=== PATIENT | male | born 1990 | race African-American/Black ===

== ENCOUNTER 2021-07-27 21:42 | Emergency (ER) | payer MEDICAID, OTHER ==
[~2021-07-27] VITALS: Ht 185.4 cm; Wt 98.0 kg
[2021-07-27 21:56] VITALS: BP 155/68
--- NOTE | 2021-07-27 22:01 | NUR ---
patient to lobby
--- NOTE | 2021-07-27 22:27 | NUR ---
PT EVALUATED BY DR. PADILLA
[2021-07-27] MEDS ORDERED: KETOROLAC 60 MG/2 ML VIAL IM ONE (23:15)
--- NOTE | 2021-07-27 23:30 | NUR ---
d/c with VSS. d/c education given. opportunity to ask questions given and answered. no rx given.
[2021-07-27 23:31] VITALS: BP 132/69
== END 2021-07-27 23:30 | disposition home or self-care (01) ==
LOC: MED 21:42
DX: M54.59 Other low back pain (principal)
CPT/HCPCS: 96372; 99283; J1885

== ENCOUNTER 2021-08-22 17:27 | Emergency (ER) | payer OTHER ==
[~2021-08-22] VITALS: Ht 185.4 cm; Wt 97.1 kg
[2021-08-22 17:35] VITALS: BP 159/98
[2021-08-22] MEDS ORDERED: FAMOTIDINE 20 MG TAB PO ONE (17:55)
[2021-08-22] MEDS ORDERED: DICYCLOMINE HCL LIQUID 20 MG, ALUMINUM HYD/MAG/SIMETHICONE 30 ML, LIDOCAINE VISCOUS 2% ... PO ONE ×3 (17:55)
[2021-08-22] MEDS ORDERED: ALUMINUM HYD/MAG/SIMETHICONE 30 ML UDC ONE (18:08)
[2021-08-22] MEDS ORDERED: DICYCLOMINE HCL LIQUID 10 MG/5 ML UDC ONE (18:08)
[2021-08-22] MEDS ORDERED: OMEP20TC10 PO (18:13)
[2021-08-22] MEDS ORDERED: ALUM355S59 PO (18:13)
[2021-08-22] MEDS ORDERED: CALC500C17 PO (18:13)
== END 2021-08-22 19:49 | disposition home or self-care (01) ==
LOC: MED 17:27
DX: K29.70 Gastritis, unspecified, without bleeding (principal); F17.210 Nicotine dependence, cigarettes, uncomplicated; Z79.899 Other long term (current) drug therapy
CPT/HCPCS: 99283

== ENCOUNTER 2022-02-07 14:03 | Emergency (ER) | payer OTHER ==
[~2022-02-07] VITALS: Ht 188 cm; Wt 95.3 kg
[~2022-02-07 14:03] MED LIST: ALUM355S59 PO; CALC500C17 PO; OMEP-303 PO
[2022-02-07 14:38] VITALS: BP 153/75
--- NOTE | 2022-02-07 14:38 | NUR ---
PT AMBULATED TO ROOM 8
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
[2022-02-07] MEDS ORDERED: DICYCLOMINE HCL LIQUID 20 MG, ALUMINUM HYD/MAG/SIMETHICONE 30 ML, LIDOCAINE VISCOUS 2% ... PO ONE ×3 (15:40)
[2022-02-07] MEDS ORDERED: FAMOTIDINE 20 MG TAB PO ONE (15:40)
[2022-02-07] MEDS ORDERED: DICYCLOMINE HCL LIQUID 10 MG/5 ML UDC ONE (15:42)
[2022-02-07] MEDS ORDERED: ALUMINUM HYD/MAG/SIMETHICONE 30 ML UDC ONE (15:42)
[2022-02-07] MEDS ORDERED: OMEP40EC23 PO (15:45)
[2022-02-07 16:10] VITALS: BP 127/88
--- NOTE | 2022-02-07 16:10 | NUR ---
Patient discharged with v/s stable. Written and verbal after care instructions FOR GERD given and explained. Patient alert, oriented and verbalized understanding of instructions. Ambulatory with steady gait. All questions addressed prior to discharge. ID band removed. Patient advised to follow up with PMD. Rx of PRILOSEC given.Opportunity to ask questions provided and answered.
== END 2022-02-07 16:10 | disposition home or self-care (01) ==
LOC: MED 14:03
DX: K21.9 Gastro-esophageal reflux disease without esophagitis (principal); R11.10 Vomiting, unspecified; Z79.899 Other long term (current) drug therapy
CPT/HCPCS: 99283